=== PATIENT | male | born 1960 | race Caucasian/White ===

== ENCOUNTER → 2016-07-01 | Outpatient (CLI) | payer BC ==
[~2016-07-01] MED LIST: CEFTIN250 MG PO; GLYBURIDE5 MG PO; LASIX20 M1 PO; LEVEMIR SQ; LEVOFLOXACIN750 MG PO
== END | disposition home or self-care (01) ==
LOC: RAD.S 06-29 14:21 → PTH.S 07:07
DX: L89.892 Pressure ulcer of other site, stage 2 (principal)